=== PATIENT | male | born 1980 | race Caucasian/White ===

== ENCOUNTER 2018-02-19 08:26 | Emergency (ER) | payer MEDICARE ==
[2018-02-19] MEDS ORDERED: LORAZEPAM INJ 2 MG/1 ML VIAL IV ONE ×2 (08:44→10:26)
[2018-02-19] MEDS ORDERED: NORMAL SALINE 1000 ML 1,000 ML IV ONE (08:44)
[2018-02-19] MEDS ORDERED: ONDANSETRON 4 MG TAB.RAPDIS PO ONE (08:45)
[2018-02-19 09:17] LABS: ABSOLUTE EOSINOPHILS # (AUTO) 0.1 10^3/uL (0.0-0.6); ABSOLUTE LYMPHOCYTES (AUTO) 1.1 10^3/uL (0.5-4.7); ABSOLUTE MONOCYTES (AUTO) 0.4 10^3/uL (0.1-1.4); ABSOLUTE NEUT (AUTO) 4.1 10^3/uL (1.7-8.2); BASOPHILS % (AUTO) 0.4 % (0-2); EOSINOPHILS % (AUTO) 1.2 % (0-6); HEMOGLOBIN 17.3 g/dL (13.5-17.0); LYMPHOCYTES % (AUTO) 19.6 % (13-45); MEAN CORPUSCULAR HGB CONC 35.2 g/dL (32.0-36.0); MEAN CORPUSCULAR VOLUME 94 fl (80-97); MONOCYTES % (AUTO) 6.4 % (3-13); PLATELET COUNT 281 10^3/uL (150-450); RED BLOOD COUNT 5.23 10^6/uL (4.35-5.55); RED CELL DISTRIBUTION WIDTH 14.1 % (11.5-14.0); SEGMENTED NEUTROPHILS % (AUTO) 72.4 % (42-78); TOTAL CELLS COUNTED % (AUTO) 100 %; WHITE BLOOD COUNT 5.6 10^3/uL (4.0-10.5)
[2018-02-19 09:25] LABS: APPEARANCE,URINE CLEAR; BILIRUBIN,URINE NEGATIVE (NEGATIVE); COLOR,URINE STRAW; GLUCOSE, URINE NEGATIVE (NEGATIVE); KETONES,URINE NEGATIVE (NEGATIVE); LEUKOCYTE ESTERASE,URINE NEGATIVE (NEGATIVE); NITRITE,URINE NEGATIVE (NEGATIVE); PROTEIN,URINE NEGATIVE (NEGATIVE); URINE SPECIFIC GRAVITY 1.002; UROBILINOGEN,URINE NEGATIVE mg/dL (<2.0)
[2018-02-19 09:33] LABS: ALANINE AMINOTRANSFERASE 52 U/L (21-72); ALBUMIN 4.7 g/dL (3.5-5.0); ALCOHOL 260 mg/dL (NONE DETECTED); ALKALINE PHOSPHATASE 55 U/L (38-126); ANION GAP 16 (5-19); ASPARTATE AMINO TRANSFERASE 74 U/L (17-59); BILIRUBIN,DIRECT 0.4 mg/dL (0.0-0.4); BILIRUBIN,TOTAL 0.6 mg/dL (0.2-1.3); BLOOD UREA NITROGEN 16 mg/dL (7-20); CARBON DIOXIDE 29 mmol/L (22-30); CHLORIDE 106 mmol/L (98-107); GLUCOSE 93 mg/dL (75-110); LIPASE 283.8 U/L (23-300); POTASSIUM 4.5 mmol/L (3.6-5.0); SODIUM 150.9 mmol/L (137-145); TOTAL PROTEIN 7.8 g/dL (6.3-8.2)
[2018-02-19 09:40] LABS: URINE AMPHETAMINES SCREEN NEGATIVE; URINE BARBITURATES SCREEN NEGATIVE; URINE BENZODIAZEPINES SCREEN NEGATIVE; URINE COCAINE SCREEN NEGATIVE; URINE MARIJUANA (THC) SCREEN NEGATIVE; URINE METHADONE SCREEN NEGATIVE; URINE PHENCYCLIDINE SCREEN NEGATIVE
--- NOTE | 2018-02-19 09:50 | ER Document Report ---
ED Substance Abuse / Acc. OD - General Chief Complaint: ETOH Abuse Stated Complaint: ETOH Time Seen by Provider: 02/19/18 08:42 Mode of Arrival: Ambulatory Information source: Patient Notes: Patient is a 37-year-old male who presents to the ER today for possible withdrawal from alcohol. Patient states that over the past 4 months he has been drinking 1/5 of fireball a day because his dad . Patient denies any alcoholism prior to this. Patient states that he is just been depressed. He denies any suicidal or homicidal ideations, he states the alcohol just "makes me feel better." Patient has children and would like to stop drinking. He has not yet sought out any detox help and that is why he is here today. Patient last drank last night around 11 PM when he had 1/5 of fireball yesterday. He admits to some nausea and "shaky feeling." TRAVEL OUTSIDE OF THE [place] IN LAST 30 DAYS: No - Related Data Allergies/Adverse Reactions: No Known Allergies Allergy (Verified 02/19/18 08:27) Past Medical History - General Information source: Patient - Social History Smoking Status: Current Some Day Smoker Chew tobacco use (# tins/day): No Frequency of alcohol use: Heavy Drug Abuse: None Family History: Reviewed & Not Pertinent Patient has suicidal ideation: No Patient has homicidal ideation: No Renal/ Medical History: Denies: Hx Peritoneal Dialysis GI Medical History: Reports: Hx Gastroesophageal Reflux Disease Psychiatric Medical History: Reports: Hx Anxiety Past Surgical History: Reports: Hx Orthopedic Surgery Review of Systems - Review of Systems Constitutional: No symptoms reported EENT: No symptoms reported Cardiovascular: No symptoms reported Respiratory: No symptoms reported Gastrointestinal: See HPI Genitourinary: No symptoms reported Male Genitourinary: No symptoms reported Musculoskeletal: No symptoms reported Skin: No symptoms reported Hematologic/Lymphatic: No symptoms reported Neurological/Psychological: See HPI Physical Exam - Vital signs Vitals: Temp Pulse Resp BP Pulse Ox 97.7 F 98 18 148/101 H 99 02/19/18 08:30 02/19/18 08:30 02/19/18 08:30 02/19/18 08:30 02/19/18 08:30 - Notes Notes: PHYSICAL EXAMINATION: GENERAL: Very pleasant, mildly ill-appearing, anxious appearing, but in no acute distress. HEAD: Atraumatic, normocephalic. EYES: Pupils equal round and reactive to light, extraocular movements intact, sclera anicteric, conjunctiva are normal. NECK: Normal range of motion, supple without lymphadenopathy LUNGS: CTAB and equal. No wheezes rales or rhonchi. HEART: Regular rate and rhythm without murmurs ABDOMEN: Soft, no tenderness. No guarding, no rebound BACK: no vertebral tenderness, normal ROM GI/: no CVA tenderness EXTREMITIES: Normal range of motion, no pitting edema. No cyanosis. NEUROLOGICAL: Cranial nerves grossly intact. Normal sensory/motor exams. PSYCH: Anxious appearing SKIN: Warm, Dry, normal turgor, no rashes or lesions noted Course - Re-evaluation Re-evalutation: 02/19/18 18:05 Patient appears to be a little shaky today but is not tachycardic, has normal vital signs, is not hypertensive, patient was given 2 doses of Ativan here which did help with his symptoms, some nausea medication, 2 L of IV fluids as well as a banana bag with multivitamin and thiamine in it. Alcohol is 260 today. Patient refused to stay for any longer than approximately 2 hours for me to observe him, stating that he wanted to be discharged on Librium. Patient was seen by mental health today and he was given resources for detoxification from alcohol. He is very pleased with care today. Lab work is otherwise unremarkable today. Drug screen is negative for anything else. 02/19/18 18:06 - Vital Signs Vital signs: Temp Pulse Resp BP Pulse Ox 97.7 F 98 18 133/86 H 100 02/19/18 08:30 02/19/18 08:30 02/19/18 12:01 02/19/18 12:02 02/19/18 12:02 - Laboratory Result Diagrams: 02/19/18 08:40 02/19/18 08:40 Laboratory results interpreted by me: 02/19/18 02/19/18 08:40 08:40 Hgb 17.3 H RDW 14.1 H Sodium 150.9 H AST 74 H Discharge - Discharge Clinical Impression: Alcohol abuse Condition: Stable Disposition: HOME, SELF-CARE Additional Instructions: Please do not drink while taking the Librium. Please seek outpatient detox help. We did give you resources today. Return immediately for any new or worsening symptoms. Follow up with primary care provider, call tomorrow to make followup appointment. Prescriptions: Chlordiazepoxide HCl [Librium 25 mg Capsule] 4 cap PO TID #52 capsule Referrals: LATESHA ROBERTSON, [employer] TECHNICIAN [Primary Care Provider] - Follow up as needed
--- NOTE | 2018-02-19 09:59 | EKG REPORT ---
SEVERITY:- NORMAL ECG - SINUS RHYTHM : Confirmed by: Kori Velez MD 19-Feb-2018 09:58:26
[2018-02-19] MEDS ORDERED: METOCLOPRAMIDE HCL INJ/PF 10 MG/2 ML SDV IV ONE (10:26)
[2018-02-19] MEDS ORDERED: NORMAL SALINE 1000 ML 1,000 ML with THIAMINE HCL 100 MG, MVI, ADULT NO.1 WITH VIT K 10 ML IV ONE ×3 (11:00)
--- NOTE | 2018-02-19 11:29 | PSYCHOLOGICAL NOTE ---
Psych Note - Psych Note Psych Note: Reason for Consult: alcohol abuse Pt reports he began drinking approximately 1/5 a day x 4 months after his father . Reports he is having a daughter due in June and wants to stop drinking alcohol. Patient reports that he is currently going through alcohol withdrawal which is never happened to him before; "this is my first experience." He he admits to drinking too much the last few months and wants to get sober because he has a daughter coming in June; "I cannot drink like this when she is here." He denies any thoughts of wanting to harm himself or others reports. Patient discloses that he has no mental health diagnosis, there is no family history of mental health. Patient has never been to outpatient mental health services or been in any medications before. He discloses that financially is unable to take time off to go to detox and is hoping that we can assist him with possibly getting a prescription for medication to help keep him from drinking and outpatient services. Patient is alert and orientated to person, place, time and circumstance. Mood is euthymic with congruent affect. Patient denies suicidal and homicidal ideation. Delusions are absent behaviors congruent with an intact reality based presentation i.e. organized and linear thought process. Eye contact is well-maintained. Conversational speech was within normal rate, tone and prosody. Intellectual abilities appear to be within the average range. Attention and concentration were good. Insight, judgment, impulse control is fair. 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 Impression\\plan: Patient is cleared from acute psychiatric services. Patient is requesting assistance in sobriety. While patient has not been drinking long he is currently going through withdrawal symptoms. He is asking for assistance in both outpatient resources and possible medications. Patient started drinking out of bereavement however is attempting to achieve and maintain sobriety for his daughter that will be born in June. Patient received outpatient resource list. Dr. Monroe was consulted and the care and management this patient; attending physician is agreement with recommendations and disposition.
[2018-02-19 12:05] VITALS: BP 133/86
[2018-02-19] MEDS ORDERED: NORMAL SALINE 1000 ML 1,000 ML with THIAMINE HCL 100 MG, MVI, ADULT NO.1 WITH VIT K 10 ML IV SCH ×3 (18:00)
== END 2018-02-19 12:06 | disposition home or self-care (01) ==
LOC: ER 08:26
DX: F10.10 Alcohol abuse, uncomplicated (principal); Y90.8 Blood alcohol level of 240 mg/100 ml or more; F32.9 Major depressive disorder, single episode, unspecified; R11.0 Nausea; F17.200 Nicotine dependence, unspecified, uncomplicated; Z63.4 Disappearance and death of family member
CPT/HCPCS: 93005; 96376; 99285; 96361; 96375; 96365; 36415; 80307 ×2; 83690; 85025; 80053; 81001; 93010; A9270; J2765; J2060; J3411; J7030; J3490; S0119

== ENCOUNTER 2018-05-19 08:55 | Emergency (ER) | payer MEDICARE ==
[2018-05-19] MEDS ORDERED: LORAZEPAM INJ 2 MG/1 ML VIAL IV ONE (09:21)
[2018-05-19] MEDS ORDERED: THIAMINE HCL 100 MG, FOLIC ACID 1 MG in NORMAL SALINE 250 ML IV ONE (09:21)
--- NOTE | 2018-05-19 09:21 | ER Document Report ---
ED Medical Screen (RME) - General Chief Complaint: Alcohol Withdrawl Stated Complaint: ETOH Time Seen by Provider: 05/19/18 09:18 Mode of Arrival: Ambulatory Information source: Patient, ON LICENSE OF [facility] Records Notes: 37-year-old male presents with complaint of headache, nausea, tremors. Patient states that he believes he is going through alcohol withdrawal. He admits to heavy excessive drinking over the last few months. His last drink was approximately 24 hours prior to arrival. I have greeted and performed a rapid initial assessment of this patient. A comprehensive ED assessment and evaluation of the patient, analysis of test results and completion of medical decision making process we will be contacted by additional ED providers. PHYSICAL EXAMINATION: Vital signs reviewed GENERAL: Tremulous LUNGS: No respiratory distress Musculoskeletal: Normal range of motion NEUROLOGICAL: Normal speech, normal gait. PSYCH: Anxious. SKIN: Warm, Dry, normal turgor, no rashes or lesions noted. TRAVEL OUTSIDE OF THE [place] IN LAST 30 DAYS: No - HPI Onset: Just prior to arrival Quality of pain: Cramping Associated Symptoms: Abdominal pain, Dizzy/lightheaded, Headache, Nausea. denies: Chest pain, Shortness of breath Exacerbated by: Denies Relieved by: Denies Similar symptoms previously: Yes Recently seen / treated by doctor: No - Related Data Smoking: Cigarettes Frequency of alcohol use: Heavy Drug Abuse: None Allergies/Adverse Reactions: No Known Allergies Allergy (Verified 02/19/18 08:27) Past Medical History Renal/ Medical History: Denies: Hx Peritoneal Dialysis GI Medical History: Reports: Hx Gastroesophageal Reflux Disease Psychiatric Medical History: Reports: Hx Anxiety Past Surgical History: Reports: Hx Orthopedic Surgery Physical Exam - Vital signs Vitals: Temp Pulse Resp BP Pulse Ox 98.6 F 94 16 155/112 H 98 05/19/18 09:02 05/19/18 09:02 05/19/18 09:02 05/19/18 09:02 05/19/18 09:02 Course - Vital Signs Vital signs: Temp Pulse Resp BP Pulse Ox 98.6 F 94 16 155/112 H 98 05/19/18 09:02 05/19/18 09:02 05/19/18 09:02 05/19/18 09:02 05/19/18 09:02 Doctor's Discharge - Discharge Referrals: LATESHA ROBERTSON NP [Primary Care Provider] - Follow up as needed
[2018-05-19] MEDS ORDERED: ONDANSETRON HCL INJ/PF 4 MG/2 ML SDV IV ONE (09:38)
--- NOTE | 2018-05-19 09:51 | ER Document Report ---
ED General <EDVIN IRBY - Last Filed: 05/19/18 11:44> - General Mode of Arrival: Ambulatory TRAVEL OUTSIDE OF THE [place] IN LAST 30 DAYS: No <MARISOL CODY - Last Filed: 05/19/18 12:09> - General Chief Complaint: Alcohol Withdrawl Stated Complaint: ETOH Time Seen by Provider: 05/19/18 09:18 - HPI Notes: Patient is a 37-year-old male with a history of alcohol abuse who presents to the ED complaining of possible withdrawal symptoms and requesting aid with detox. Patient states that he presented this way in February as well, but was unsuccessful with detox. Patient states that he last had a drink 15-20 hours ago and when he woke up today he started noticing shaking, nausea/vomiting. Patient states that he does have a depressed mood behind his drinking without any SI/HI. He has not had any auditory or visual hallucinations. Patient denies any drug allergies or IV drug use. He is requesting possible Librium or another medicine to help him with detox. He is otherwise able to eat and drink without any difficulties. He is urinating normally and having normal bowel movements. Denies any headache, fever, head injury, neck pain, changes in vision/speech/mentation/hearing, URI, sore throat, chest pain, palpitations, syncope, cough, shortness of breath, wheeze, dyspnea, abdominal pain, diarrhea, urinary retention, dysuria, hematuria, loss of control of bowel or bladder, numbness/tingling, saddle anesthesia, muscle paralysis/weakness, seizure, or rash. (MARISOL CODY) - Related Data Allergies/Adverse Reactions: No Known Allergies Allergy (Verified 02/19/18 08:27) Past Medical History - General Information source: Patient, [facility] Records - Social History Smoking Status: Current Some Day Smoker Frequency of alcohol use: Heavy Drug Abuse: None Family History: Reviewed & Not Pertinent Patient has suicidal ideation: No Patient has homicidal ideation: No Renal/ Medical History: Denies: Hx Peritoneal Dialysis GI Medical History: Reports: Hx Gastroesophageal Reflux Disease Psychiatric Medical History: Reports: Hx Anxiety Past Surgical History: Reports: Hx Orthopedic Surgery <MARISOL CODY - Last Filed: 05/19/18 12:09> Review of Systems - Review of Systems -: Yes All other systems reviewed and negative <MARISOL CODY - Last Filed: 05/19/18 12:09> Physical Exam <MAHAMEDEDVIN - Last Filed: 05/19/18 11:44> <ESCOBARMARISOL - Last Filed: 05/19/18 12:09> - Vital signs Vitals: Temp Pulse Resp BP Pulse Ox 98.6 F 94 16 155/112 H 98 05/19/18 09:02 05/19/18 09:02 05/19/18 09:02 05/19/18 09:02 05/19/18 09:02 - Notes Notes: PHYSICAL EXAMINATION: GENERAL: Well-appearing, well-nourished and in no acute distress. A&Ox4. Answers questions appropriately. HEAD: Atraumatic, normocephalic. Non-tender. EYES: Pupils equal round and reactive to light, extraocular movements intact, sclera anicteric, conjunctiva are normal. No nystagmus. vis rock intact. No nystagmus. ENT: EAC clear b/l. TM's intact b/l without erythema, fluid, or perforation. Nares patent and without discharge. oropharynx clear without exudates. No tonsilar hypertrophy or erythema. Moist mucous membranes. No sinus tenderness. NECK: Normal range of motion, supple without lymphadenopathy. No rigidity/ meningismus. No midline tenderness. LUNGS: Breath sounds clear to auscultation bilaterally and equal. No wheezes rales or rhonchi. HEART: Regular rate and rhythm without murmurs, rubs, gallops. ABDOMEN: Soft, nontender, nondistended abdomen. No guarding, no rebound. Normal bowel sounds present. No CVA tenderness bilaterally. Musculoskeletal: Ext b/l: FROM to passive/active. Strength 5+/5. No deficits noted. No bony tenderness of extremities. Extremities: No cyanosis, clubbing, or edema b/l. Peripheral pulses 2+. Capillary refill less than 2 seconds. NEUROLOGICAL: NIH 0. GCS 15. Cranial nerves grossly intact. Normal speech, normal gait. Normal sensory, motor exams. Reflexes 2+ b/l. UYLSSES's negative. Pronator drift negative. Heel/[place], finger/nose wnl. Rhomberg neg. PSYCH: Normal mood, normal affect. SKIN: Warm, Dry, normal turgor, no rashes or lesions noted. (MARISOL CODY) Course - Laboratory Result Diagrams: 05/19/18 09:30 05/19/18 09:30 <EDVIN IRBY - Last Filed: 05/19/18 11:44> - Laboratory Result Diagrams: 05/19/18 09:30 05/19/18 09:30 <MARISOL CODY - Last Filed: 05/19/18 12:09> - Re-evaluation Re-evalutation: 05/19/18 09:53 Patient was given Zofran and Ativan upon triage which resolved his "shakiness" and tremulousness noted on exam at triage. Pt states that he is feeling better than when he arrived. We will check labs, give fluids, and have him eval'd by our Psychology team. 05/19/18 11:55 Patient is an afebrile, well-hydrated, 37-year-old male who presents to the ED for alcohol withdrawal symptoms, currently resolved. Vitals are acceptable without any significant tachycardia, tachypnea, or hypoxia. PE is otherwise unremarkable for any focal neurological deficits. NIH 0, GCS 15, cranial is grossly intact. Patient is nontoxic-appearing and is tolerating p.o. without difficulties. Our psychology provider told me that he does not want detox, just the Librium. I did pull his medication history off of the [place] database which shows that he is on alprazolam multiple times per day every month. I will only be prescribing 50mg BID of Librium and thiamine, reviewed with Dr. Saravia, so he can get to a detox facility (even though he is not fully committed at this time). Patient is currently clear of thought and can ambulate in a straight line without wavering. Lab work is unremarkable. No further labs or imaging warranted. Strongly advised patient to establish with a detox clinic from the resources that were provided to him. Recheck with your PCM this week. Return to the ED with any worsening/concerning symptoms otherwise as reviewed discharge. Patient is in agreement. (MARISOL CODY) - Vital Signs Vital signs: Temp Pulse Resp BP Pulse Ox 98.6 F 94 16 155/112 H 98 05/19/18 09:02 05/19/18 09:02 05/19/18 09:02 05/19/18 09:02 05/19/18 09:02 - Laboratory Laboratory results interpreted by me: 05/19/18 05/19/18 05/19/18 09:30 09:30 09:30 MCH 33.8 H RDW 14.2 H BUN 6 L Direct Bilirubin 0.6 H AST 189 H ALT 188 H Urine Protein 30 H Discharge <EDVIN IRBY - Last Filed: 05/19/18 11:44> <MARISOL CODY - Last Filed: 05/19/18 12:09> - Discharge Clinical Impression: ETOH abuse Condition: Stable Disposition: HOME, SELF-CARE Additional Instructions: You were seen in the ED and evaluated by the Medical and Behavioral Health Teams for ETOH abuse and determined to be appropriate for discharge at this time. You are recommended to follow up with an outpatient provider to assist you upon discharge. You were given a resource list with outpatient providers to include substance abuse treatment to assist you with obtaining detox. CHRONIC ALCOHOLISM and ALCOHOL ABUSE: Your evaluation reveals evidence of chronic alcoholism, an addiction to alcohol. The tendency to alcoholism may be inherited. Chronic use of alcohol weakens muscles, causes fatty deposits in the liver , damages the stomach, makes you more prone to infections, and can cause defects in unborn children. In the long run, brain atrophy and cirrhosis of the liver result. You are also at greater risk for certain types of cancer, such as cancer of the mouth, throat, stomach, and liver. Counselling services are available to help you. In-hospital treatment programs often help. Support groups such as Alcoholics Anonymous can be very useful in beating this addiction. Your physician can make a referral for you. As alcoholics often are prone to other addictions, you should discuss your use of any other medications with the doctor. ALCOHOL WITHDRAWAL: Your symptoms are caused by alcohol withdrawal. After a period of frequent drinking, the brain and body are changed by the alcohol. When you quit or reduce your drinking, the nervous system becomes unstable. Withdrawal symptoms can start a few hours after your last drink, but sometimes don't begin until a couple of days later. Symptoms can include shakiness, sweating, insomnia, nausea , vomiting, fearfulness, hallucinations, and seizures. In addition to the acute effects of alcohol withdrawal, we often have to deal with the medical effects of alcoholism. These problems often include dehydration, stomach irritation, intestinal bleeding, low blood sugar, liver disease, and pancreas inflammation. Treatment for alcohol withdrawal includes mild sedatives, vitamins, and fluids. You need to be with someone who can help if symptoms become severe. Many patients can withdraw at home. Admission to the hospital or a detox facility may be necessary if withdrawal symptoms are severe and uncontrollable. Abstaining from alcohol is the only effective long-term treatment. If you start drinking again, you will not be able to control yourself after the first drink. Treatment programs are available. In addition, many alcoholics benefit from Alcoholics Anonymous or other support groups available through your counselor or nondenominational heel seat laster. AL-ANON and ALA-TEEN are support groups for friends and family members of an alcoholic. Go to the emergency room if you develop persistent vomiting, severe abdominal pain, fever, shortness of breath, hallucinations, uncontrollable tremors, or seizures. FOLLOW-UP CARE: If you have been referred to a physician for follow-up care, call the physician s office for an appointment as you were instructed or within the next two days. If you experience worsening or a significant change in your symptoms, notify the physician immediately or return to the Emergency Department at any time for re-evaluation. Prescriptions: Chlordiazepoxide HCl [Librium 25 mg Capsule] 2 cap PO BID PRN #12 capsule PRN Reason: Thiamine HCl [Thiamine 100 mg Tablet] 100 mg PO TID #21 tablet Forms: Elevated Blood Pressure, Smoking Cessation Education Referrals: LATESHA ROBERTSON NP [Primary Care Provider] - Follow up in 3-5 days
[2018-05-19 09:57] LABS: ABSOLUTE EOSINOPHILS # (AUTO) 0.2 10^3/uL (0.0-0.6); ABSOLUTE LYMPHOCYTES (AUTO) 0.9 10^3/uL (0.5-4.7); ABSOLUTE MONOCYTES (AUTO) 0.5 10^3/uL (0.1-1.4); ABSOLUTE NEUT (AUTO) 3.7 10^3/uL (1.7-8.2); BASOPHILS % (AUTO) 0.6 % (0-2); HEMATOCRIT 48.1 % (37.9-51.0); LYMPHOCYTES % (AUTO) 17.1 % (13-45); MEAN CORPUSCULAR HEMOGLOBIN 33.8 pg (27.0-33.4); MEAN CORPUSCULAR HGB CONC 35.4 g/dL (32.0-36.0); MEAN CORPUSCULAR VOLUME 96 fl (80-97); MONOCYTES % (AUTO) 8.7 % (3-13); PLATELET COUNT 213 10^3/uL (150-450); RED BLOOD COUNT 5.02 10^6/uL (4.35-5.55); RED CELL DISTRIBUTION WIDTH 14.2 % (11.5-14.0); SEGMENTED NEUTROPHILS % (AUTO) 70.6 % (42-78); TOTAL CELLS COUNTED % (AUTO) 100 %; WHITE BLOOD COUNT 5.2 10^3/uL (4.0-10.5)
[2018-05-19 10:02] LABS: AMORPHOUS SEDIMENT,URINE TRACE /HPF; APPEARANCE,URINE CLOUDY; BILIRUBIN,URINE NEGATIVE (NEGATIVE); COLOR,URINE AMBER; GLUCOSE, URINE NEGATIVE (NEGATIVE); KETONES,URINE NEGATIVE (NEGATIVE); LEUKOCYTE ESTERASE,URINE NEGATIVE (NEGATIVE); NITRITE,URINE NEGATIVE (NEGATIVE); PROTEIN,URINE 30 mg/dL (NEGATIVE); URINE SPECIFIC GRAVITY 1.019; UROBILINOGEN,URINE NEGATIVE mg/dL (<2.0)
[2018-05-19 10:17] LABS: URINE AMPHETAMINES SCREEN NEGATIVE; URINE BARBITURATES SCREEN NEGATIVE; URINE BENZODIAZEPINES SCREEN UNCONFIRMED POSITIVE; URINE COCAINE SCREEN NEGATIVE; URINE MARIJUANA (THC) SCREEN NEGATIVE; URINE METHADONE SCREEN NEGATIVE; URINE PHENCYCLIDINE SCREEN NEGATIVE
[2018-05-19 10:21] LABS: ALANINE AMINOTRANSFERASE 188 U/L (21-72); ALBUMIN 4.8 g/dL (3.5-5.0); ALKALINE PHOSPHATASE 60 U/L (38-126); ANION GAP 9 (5-19); ASPARTATE AMINO TRANSFERASE 189 U/L (17-59); BILIRUBIN,DIRECT 0.6 mg/dL (0.0-0.4); BLOOD UREA NITROGEN 6 mg/dL (7-20); CALCIUM 9.3 mg/dL (8.4-10.2); CARBON DIOXIDE 28 mmol/L (22-30); CHLORIDE 104 mmol/L (98-107); GLUCOSE 104 mg/dL (75-110); POTASSIUM 4.7 mmol/L (3.6-5.0); SODIUM 141.4 mmol/L (137-145); TOTAL PROTEIN 7.7 g/dL (6.3-8.2)
[2018-05-19 12:14] VITALS: BP 132/101
--- NOTE | 2018-05-19 12:58 | PSYCHOLOGICAL NOTE ---
Psych Note - Psych Note Psych Note: Reason for consult: ETOH Abuse Pt into ER today with c/o alcohol withdrawal. Pt states his last drink was 2 days ago and he normally drinks about a 5th of liquor per day. Per pt, he is now vomiting, with the shakes and sweats. Pt denies fevers. Patient states that he would like to get a prescription for Librium, "like the last time he was here" which was in February 2018. Patient states that he never got around to going to detox and if he could just get another prescription filled that he would try to go this time. Patient states that he has been drinking " way too much" and wants medicine to help him feel better. Patient denies suicidal/homicidal ideation. This Clinician gave him the Detox/Substance Abuse Resource list to assist him upon discharge. Patient is alert and oriented to person,place, time and circumstance. Mood is euthymic with congruent affect. Delusions are absent behaviors congruent with an intact reality based presentation i.e. organized and linear thought process. Eye contact is well maintained. Conversational speech was within normal rate, tone and prosody. Intellectual abilities appear to be within the average range. Attention and concentration were good. Insight, judgment, and impulse control is fair. No medication recommendations at this time Diagnosis 291.81 (F10.239) Alcohol Withdrawal Impression/Plan: Patient is cleared from acute psychiatric services. Patient is not suicidal or homicidal, with no means, intent or plan. Patient is specifically requesting a prescription for Librium to assist him with detox. Patient was seen in the ED in February and was given resources for outpatient providers to include substance abuse treatment/detox and did not follow through. Dr. Monroe was consulted in the care and management of this patient; attending physician is in agreement with recommendations and disposition.
== END 2018-05-19 12:24 | disposition home or self-care (01) ==
LOC: ER 08:55
DX: F10.10 Alcohol abuse, uncomplicated (principal); R51 Headache; R11.0 Nausea; R10.9 Unspecified abdominal pain; F17.200 Nicotine dependence, unspecified, uncomplicated
CPT/HCPCS: 99285; 96375; 96365; 36415; 85025; 80053; 81001; 80307; J3490; J2060; J3411; J2405; J7050

== ENCOUNTER → 2019-01-08 | Outpatient (CLI) | payer MEDICARE ==
[2019-01-09 13:49] LABS: COBALT PLASMA None Detected ug/L (0.0-0.9)
[2019-01-10 15:29] LABS: CHROMIUM PLASMA 1.1 ug/L (0.1-2.1)
== END ==
LOC: LAB 10:20
PROVIDERS: ATTEND Specialist
DX: Z96.649 Presence of unspecified artificial hip joint (principal)
CPT/HCPCS: 36415; 82495; 83018

== ENCOUNTER 2019-09-08 14:39 | Emergency (ER) | payer MEDICARE ==
--- NOTE | 2019-09-08 15:42 | ER Document Report ---
ED General - General Mode of Arrival: Ambulatory Information source: Patient, Relative TRAVEL OUTSIDE OF THE [place] IN LAST 30 DAYS: No - HPI Onset: Other - patient has been drinking hard for months but it has gotten much worse over lsat 10 days Onset/Duration: Gradual Quality of pain: Sharp - in legs Severity: Moderate Pain Level: 3 Associated symptoms: Other - Alcohol Abuse, Depression Exacerbated by: Denies Relieved by: Denies Similar symptoms previously: Yes - patient has been a heavy drinker for some time now Recently seen / treated by doctor: No <XENIA RHOADES - Last Filed: 09/08/19 19:40> <CLARICE ROWLAND - Last Filed: 09/08/19 23:30> - General Chief Complaint: ETOH Abuse Stated Complaint: ETOH ABUSE Time Seen by Provider: 09/08/19 15:42 Primary Care Provider: LEV GONG NP [NURSE PRACTITIONER] - Follow up as needed - HPI Notes: 38 year old male with a history of a hip replacement due to avascular necrosis and a hip revision surgery as well has heavy alcohol use here in the ER because he would like with alcohol abuse. The patient went to outpatient mental health and they had him use a breathalyzer and he blew a 0.3. The patient was therefore sent to the ER since this is too high of an alcohol level for them. The patient denies SI or HI. The patient says when he is drinking hard he drinks aboout a 1/5th a day of liquor. Of note the patient is prescribed Xanax PRN and he tells me he takes this daily. (XENIA RHOADES) - Related Data Allergies/Adverse Reactions: No Known Allergies Allergy (Verified 09/30/18 18:19) Past Medical History - General Information source: Patient, Parent - Social History Smoking Status: Never Smoker Frequency of alcohol use: Heavy Drug Abuse: None Family History: Reviewed & Not Pertinent Patient has suicidal ideation: No Patient has homicidal ideation: No - Past Medical History Cardiac Medical History: Reports: None Pulmonary Medical History: Reports: None EENT Medical History: Reports: None Neurological Medical History: Reports: None Endocrine Medical History: Reports: None Renal/ Medical History: Reports: None. Denies: Hx Peritoneal Dialysis Malignancy Medical History: Reports None GI Medical History: Reports: Hx Gastroesophageal Reflux Disease Musculoskeletal Medical History: Reports None Skin Medical History: Reports None Psychiatric Medical History: Reports: Hx Anxiety, Other - Alcohol Abuse Past Surgical History: Reports: Hx Orthopedic Surgery - hip replacement and hip revision <XENIA RHOADES - Last Filed: 09/08/19 19:40> Review of Systems - Review of Systems Constitutional: No symptoms reported EENT: No symptoms reported Cardiovascular: No symptoms reported Respiratory: No symptoms reported Gastrointestinal: No symptoms reported Genitourinary: No symptoms reported Male Genitourinary: No symptoms reported Musculoskeletal: No symptoms reported Skin: No symptoms reported Hematologic/Lymphatic: No symptoms reported Neurological/Psychological: Depression, Other - Alcohol Abuse <XENIA RHOADES - Last Filed: 09/08/19 19:40> Physical Exam <XENIA RHOADES - Last Filed: 09/08/19 19:40> - Vital signs Vitals: Temp Pulse BP Pulse Ox 98.0 F 120 H 124/83 94 09/08/19 14:58 09/08/19 14:58 09/08/19 14:58 09/08/19 14:58 - Notes Notes: GENERAL: Well-appearing, well-nourished and in no acute distress. Patient is intoxicated. HEAD: Atraumatic, normocephalic. EYES: Pupils equal round and reactive to light, extraocular movements intact, sclera anicteric, conjunctiva are normal. ENT: TMs normal, nares patent, oropharynx clear without exudates. Moist mucous membranes. NECK: Normal range of motion, supple without lymphadenopathy or JVD. LUNGS: Breath sounds clear to auscultation bilaterally and equal. No wheezes rales or rhonchi. HEART: Regular rate and rhythm without murmurs, rubs or gallops. ABDOMEN: Soft, nontender, normoactive bowel sounds. No guarding, no rebound. No masses appreciated. EXTREMITIES: Normal range of motion, no pitting or edema. No clubbing or cyanosis. NEUROLOGICAL: Cranial nerves II through XII grossly intact. Normal speech, normal gait. PSYCH: Normal mood, normal affect. SKIN: Warm, Dry, normal turgor, no rashes or lesions noted. (XENIA RHOADES) Course - Laboratory Result Diagrams: 09/08/19 16:40 09/08/19 16:40 <XENIA RHOADES - Last Filed: 09/08/19 19:40> - Laboratory Result Diagrams: 09/08/19 16:40 09/08/19 16:40 <CLARICE ROWLAND - Last Filed: 09/08/19 23:30> - Re-evaluation Re-evalutation: 09/08/19 16:04 The patient is here in the ER since he was too intoxicated based on a breathalyzer at [facility]. Plan to give the patient a banana bag and observe him until his alcohol level is at a level that [facility] will take him. Patient is not under a psych hold as he is voluntarily here seeking help for substance abuse. CBC, CMP, and Alcohol level ordered. Patient was somewhat restless on ER arrival so IM Ativan was given 1mg. (XENIA RHOADES) 09/08/19 23:29 Alcohol level 107. Patient is medically cleared medically stable to go to an outpatient/inpatient mental health center. (CLARICE ROWLAND) - Vital Signs Vital signs: Temp Pulse Resp BP Pulse Ox 97.5 F 120 H 22 H 152/99 H 96 09/08/19 23:09 09/08/19 14:58 09/08/19 23:09 09/08/19 23:09 09/08/19 23:09 - Laboratory Laboratory results interpreted by me: 09/08/19 16:40 Sodium 148.3 H Discharge <XENIA RHOADES - Last Filed: 09/08/19 19:40> <CLARICE ROWLAND - Last Filed: 09/08/19 23:30> - Discharge Clinical Impression: Alcohol abuse Condition: Stable Disposition: PSYCH HOSP/UNIT Instructions: Acute Alcohol Intoxication ([facility]), Chronic Alcoholism ([facility]) Additional Instructions: Go to [facility] for alcohol rehab. Seek medical attention if worse in anyway. Referrals: LEV GONG NP [NURSE PRACTITIONER] - Follow up as needed
[2019-09-08] MEDS ORDERED: LORAZEPAM INJ 2 MG/1 ML VIAL IM ONE (16:13)
[2019-09-08] MEDS ORDERED: LORAZEPAM INJ 2 MG/1 ML VIAL IV ONE ×2 (16:48→19:36)
[2019-09-08 17:02] LABS: ABSOLUTE EOSINOPHILS # (AUTO) 0.1 10^3/uL (0.0-0.6); ABSOLUTE LYMPHOCYTES (AUTO) 1.5 10^3/uL (0.5-4.7); ABSOLUTE MONOCYTES (AUTO) 0.3 10^3/uL (0.1-1.4); BASOPHILS % (AUTO) 0.7 % (0-2); EOSINOPHILS % (AUTO) 1.1 % (0-6); HEMATOCRIT 48.3 % (37.9-51.0); HEMOGLOBIN 16.6 g/dL (13.5-17.0); LYMPHOCYTES % (AUTO) 25.7 % (13-45); MEAN CORPUSCULAR HEMOGLOBIN 31.1 pg (27.0-33.4); MEAN CORPUSCULAR HGB CONC 34.3 g/dL (32.0-36.0); MEAN CORPUSCULAR VOLUME 91 fl (80-97); MONOCYTES % (AUTO) 5.3 % (3-13); PLATELET COUNT 268 10^3/uL (150-450); RED BLOOD COUNT 5.32 10^6/uL (4.35-5.55); SEGMENTED NEUTROPHILS % (AUTO) 67.2 % (42-78); TOTAL CELLS COUNTED % (AUTO) 100 %; WHITE BLOOD COUNT 5.9 10^3/uL (4.0-10.5)
[2019-09-08 17:22] LABS: ALBUMIN 4.8 g/dL (3.5-5.0); ALCOHOL 286 mg/dL (NONE DETECTED); ALKALINE PHOSPHATASE 69 U/L (38-126); ANION GAP 15 (5-19); ASPARTATE AMINO TRANSFERASE 43 U/L (17-59); BILIRUBIN,DIRECT 0.3 mg/dL (0.0-0.4); BILIRUBIN,TOTAL 0.4 mg/dL (0.2-1.3); BLOOD UREA NITROGEN 9 mg/dL (7-20); CALCIUM 9.5 mg/dL (8.4-10.2); CARBON DIOXIDE 26 mmol/L (22-30); CHLORIDE 107 mmol/L (98-107); GLUCOSE 101 mg/dL (75-110); POTASSIUM 4.1 mmol/L (3.6-5.0); TOTAL PROTEIN 8.1 g/dL (6.3-8.2)
[2019-09-08] MEDS ORDERED: NORMAL SALINE 1000 ML 1,000 ML with POTASSIUM CHLORIDE 20 MEQ, MAGNESIUM SULFATE 8 MEQ,... IV SCH ×5 (18:00)
[2019-09-08] MEDS ORDERED: ONDANSETRON HCL INJ/PF 4 MG/2 ML SDV IV ONE (22:07)
[2019-09-08 23:16] VITALS: BP 152/99
== END 2019-09-08 23:36 ==
LOC: ER 14:39
DX: F10.10 Alcohol abuse, uncomplicated (principal); F32.9 Major depressive disorder, single episode, unspecified; Z96.649 Presence of unspecified artificial hip joint
CPT/HCPCS: 96376; 99284; 96372; 96375; 96365; 96366; 36415; 80307; 85025; 80053; J3475; J2060; J3480; J3411; J2405; J7030; J3490